=== PATIENT | female | born 1945 | race Caucasian/White ===

== ENCOUNTER 2021-09-01 10:35 | Outpatient (CLI) | payer MEDICARE, OTHER | END 2021-09-01 10:36 | disposition home or self-care (01) | LOC: CSHRAD 10:35 | PROVIDERS: ATTEND Otolaryngology Plastic Surgery within the Head & Neck | DX: R13.10 Dysphagia, unspecified (principal); R19.2 Visible peristalsis; K21.9 Gastro-esophageal reflux disease without esophagitis; M41.9 Scoliosis, unspecified | CPT/HCPCS: 74220 ==

== ENCOUNTER 2022-10-05 11:41 | Outpatient (CLI) | payer OTHER, MEDICAID | END 2022-10-05 11:42 | disposition home or self-care (01) | LOC: CSHULT 11:41 | PROVIDERS: ATTEND Otolaryngology Plastic Surgery within the Head & Neck | DX: E04.1 Nontoxic single thyroid nodule (principal) | CPT/HCPCS: 76536 ==

== ENCOUNTER 2023-11-18 09:04 | Outpatient (CLI) | payer OTHER, MEDICAID | END 2023-11-18 09:05 | disposition home or self-care (01) | LOC: CSHULT 09:04 | PROVIDERS: ATTEND Otolaryngology Plastic Surgery within the Head & Neck | DX: E04.9 Nontoxic goiter, unspecified (principal); E04.1 Nontoxic single thyroid nodule | CPT/HCPCS: 76536 ==